=== PATIENT | female | born 1985 | race American Indian/Alaskan Native ===

== ENCOUNTER 2019-12-02 19:36 | Emergency (ER) | payer SELFPAY ==
[2019-12-02 19:55] VITALS: BP 137/88
[2019-12-02] MEDS ORDERED: TETANUS,DIPH,PERTUSS(ACELL) VACCINE 0.5 ML SYRINGE IM ONE (23:04)
[2019-12-02] MEDS ORDERED: LIDOCAINE (1%) 10 MG/1 ML VIAL 20 ML MDV INFILTRATI ONE (23:04)
--- NOTE | 2019-12-02 23:10 | Emergency Department Report ---
ED Laceration HPI - HPI Chief Complaint: Wound/Laceration Stated Complaint: FINGER INJURY Time Seen by Provider: 12/02/19 22:54 Location: Upper Extremity Severity: mild Tetanus Status: Unknown Laceration Symptoms: Yes Pain, No Foreign Body Sensation, No Numbness, No Weakness Other History: 33-year-old -[place] female presents with complaints of right thumb laceration x today. She states she cut her hand while cutting sushi. She is unsure of her last tetanus vaccination. She rates her pain as a 1/10 in severity. ED Review of Systems ROS: Stated complaint: FINGER INJURY Other details as noted in HPI Skin: as per HPI Neurological: denies: weakness, numbness, paresthesias ED Past Medical Hx - Past Medical History Previous Medical History?: No - Surgical History Past Surgical History?: No - Social History Smoking Status: Never Smoker Substance Use Type: None - Medications Home Medications: Home Medications Medication Instructions Recorded Confirmed Last Taken Type Mupirocin [Bactroban 2% OINT] 1 applic TP TID 7 Days #1 tube 12/02/19 Unknown Rx Laceration Physical Exam - Exam General: Vital signs noted. No distress. Alert and acting appropriately. Laceration Location: Upper Extremity (3 cm linear laceration noted to control distal aspect of thumb. No visible foreign bodies noted. Minimal active bleeding. Normal range of motion of thumb and sensation noted.) Laceration Exam: Yes Normal Distal CMS, No Foreign Body, No Exposed Tendon, Vessel, or Nerve, No Tendon Injury ED Course Vital Signs 12/02/19 19:50 Temperature 98.2 F Pulse Rate 96 H Respiratory 18 Rate Blood Pressure 137/88 O2 Sat by Pulse 99 Oximetry - Laceration /Wound Repair Finger Wound Location: upper extremity Wound Length (cm): 3 Wound's Depth, Shape: linear Wound Explored: clean Irrigated w/ Saline (ccs): 60 Betadine Prep?: Yes Anesthesia: 1% Lidocaine Volume Anesthetic (ccs): 3 Wound Repaired With: sutures Suture Size/Type: 5:0, proline Number of Sutures: 5 (simple) Sterile Dressing Applied?: Yes Progress: Minimal bleeding during procedure. Patient tolerated procedure well without any immediate complications. Patient is neuro vascularly intact postprocedure Critical care attestation.: If time is entered above; I have spent that time in minutes in the direct care of this critically ill patient, excluding procedure time. ED Disposition Clinical Impression: Laceration of right thumb without damage to nail Qualifiers: Encounter type: initial encounter Foreign body presence: without foreign body Qualified Code(s): S61.011A - Laceration without foreign body of right thumb without damage to nail, initial encounter Disposition: TO HOME OR SELFCARE Is pt being admited?: No Condition: Stable Instructions: Suture Care (ED), Finger Laceration (ED) Additional Instructions: Return to the emergency department in 10 days for suture removal. If you experience any signs and symptoms of infection including increased pain, increased swelling, drainage, fever/chills/sweats, or any other concerns, please return to the emergency department immediately. Prescriptions: Mupirocin [Bactroban 2% OINT] 1 applic TP TID 7 Days #1 tube Referrals: PRIMARY CARE, [Primary Care Provider] - 3-5 Days
== END 2019-12-03 00:30 | disposition home or self-care (01) ==
LOC: ED 19:36
DX: S61.011A Laceration without foreign body of right thumb without damage to nail, initial encounter (principal); Z79.899 Other long term (current) drug therapy; W45.8XXA Other foreign body or object entering through skin, initial encounter; Y93.89 Activity, other specified; Y92.89 Other specified places as the place of occurrence of the external cause; Y99.8 Other external cause status
CPT/HCPCS: 90471; 90715